=== PATIENT | male | born 1960 | race Two or more races ===

== ENCOUNTER → 2021-09-12 | Outpatient (CLI) | payer OTHER ==
--- NOTE | 2021-09-12 16:13 | RAD ---
Exam: XR RIGHT HIP (WITH OR WITHOUT PELVIS) 2 VIEWS History: Right hip pain Comparison: None. Findings: AP view of the pelvis with 2 coned-down views of the right hip. Normal osseous mineralization. No fra cture or dislocation. Mild narrowing of the right femoral acetabular joint. No significant osteophyte formation. The pubic rami are intact. Suggestion of possible sclerosis across the sacroiliac joints however limited evaluation due to superimposed bowel. Atherosclerotic vascular calcifications in the proximal thighs. Impression: 1. Mild degenerative changes of the right hip without acute osseous abnormality. 2. Suggestion of sclerosis across the sacroiliac joints, evaluation limited by superimposed bowel. C orrelate for sacroiliitis. Electronically signed by: Kishan Zamudio MD (09/12/2021 4:11 PM) [id number]
--- NOTE | 2021-09-12 16:26 | RAD ---
XR CERVICAL SPINE 4-5V History: Neck pain. Comparison: None. Technique: 5 views of the cervical spine. Findings: There are 7 non-rib bearing cervical vertebral segments. There is no evidence of fracture. No destructive osseous lesions are seen. Alignment is normal. No significant facet disease. Mild multilevel degenerative disc disease with endplate osteophytes and uncovertebral hypertrophy. Mi ld disc space narrowing C6-C7 and C7-T1. No significant foraminal stenosis. Soft tissues are unremarkable. IMPRESSION: 1. Mild cervical spondylosis. Electronically signed by: Kishan Zamudio MD (09/12/2021 4:24 PM) [id number]
== END ==
LOC: RAD 10:26
DX: Z02.71 Encounter for disability determination (principal); M25.551 Pain in right hip; M25.851 Other specified joint disorders, right hip; M47.812 Spondylosis without myelopathy or radiculopathy, cervical region; M48.03 Spinal stenosis, cervicothoracic region; M50.30 Other cervical disc degeneration, unspecified cervical region; M25.78 Osteophyte, vertebrae
CPT/HCPCS: 72050; 73502